=== PATIENT | male | born 1995 | race Two or more races ===

== ENCOUNTER 2019-04-20 21:53 | Inpatient (IN) | payer OTHER ==
[~2019-04-20] VITALS: Ht 175.3 cm; Wt 68.9 kg
[~2019-04-20 21:53] MED LIST: FERR325T23 PO; MESA0.37 PO; PRED20TA PO
[2019-04-20] MEDS ORDERED: MORPHINE SULFATE INJ 2 MG/ML DISP.SYRIN IV ONE (23:00)
[2019-04-20] MEDS ORDERED: IV NS 0.9% 1,000 ML BAG IV ONE ×2 (23:00→23:30)
[2019-04-20] MEDS ORDERED: ONDANSETRON HCL/PF 4 MG/2 ML VIAL IVP ONE (23:00)
[2019-04-20] MEDS ORDERED: MORPHINE SULFATE INJ 4 MG/ML DISP.SYRIN ONE (23:15)
[2019-04-20] MEDS ORDERED: ONDANSETRON HCL/PF 4 MG/2 ML VIAL ONE (23:15)
[2019-04-20] MEDS ORDERED: ACETAMINOPHEN 325 MG TABLET PO ONE (23:30)
[2019-04-20] MEDS ORDERED: ACETAMINOPHEN ES 500 MG TABLET ONE (23:37)
[2019-04-20 23:43] LABS: BASOPHILS # (AUTO) 0.1 /CMM (0.0-0.2); BASOPHILS % (AUTO) 0.7 % (0.0-2.0); EOSINOPHILS % (AUTO) 0.8 % (0.0-6.0); LYMPHOCYTES # (AUTO) 1.5 /CMM (0.8-4.8); LYMPHOCYTES % (AUTO) 20.6 % (20.0-44.0); MEAN CORPUSCULAR HGB CONC 33 g/dl (31.0-36.0); MEAN CORPUSCULAR VOLUME 93 fL (80-96); MONOCYTES # (AUTO) 1.6 /CMM (0.1-1.30); MONOCYTES % (AUTO) 22.1 % (2.0-12.0); NEUTROPHILS # (AUTO) 4.1 /CMM (1.8-8.9); NEUTROPHILS % (AUTO) 55.8 % (43.0-81.0); PLATELET COUNT (AUTO) 416 /CMM (150-450); RED BLOOD CELL COUNT(AUTO) 2.05 MIL/uL (4.5-6.0); WHITE BLOOD COUNT (AUTO) 7.3 K/uL (4.3-11.0)
[2019-04-20 23:45] LABS: HEMATOCRIT 19 % (39-51); HEMOGLOBIN 6.3 g/dL (13.5-17.5)
--- NOTE | 2019-04-20 23:45 | NUR ---
A/O X 4. C/O ABDOMINAL PAIN 02/21. SEEN BY MD. IV STARTED AND MEDS GIVEN.
[2019-04-20 23:54] LABS: CALCIUM, SERUM 7.8 mg/dL (8.5-10.1); CARBON DIOXIDE 29 mmol/L (21-32); CHLORIDE 94 mmol/L (98-107); CREATININE 1.3 mg/dL (0.6-1.3); GLUCOSE 118 mg/dL (74-106); POTASSIUM 3.7 mmol/L (3.5-5.1); SODIUM SERUM 131 mmol/L (136-145); UREA NITROGEN, BLOOD 9 mg/dL (7-18)
--- NOTE | 2019-04-20 23:56 | NUR ---
WENT FOR CT.
[2019-04-20 23:59] LABS: ALANINE AMINOTRANSFERASE 18 U/L (12-78); ALBUMIN 1.9 g/dL (3.4-5.0); ALKALINE PHOSPHATASE 32 U/L (46-116); ASPARTATE AMINOTRANSFERASE 18 U/L (15-37); BILIRUBIN,DIRECT 0.1 mg/dL (0.0-0.2); BILIRUBIN,TOTAL 0.2 mg/dL (0.2-1.0); LIPASE 51 U/L (73-393); TOTAL PROTEIN, SERUM 5.8 g/dL (6.4-8.2)
[2019-04-21] VITALS (11 sets, daily range): BP systolic 89–110; BP diastolic 40–61
[2019-04-21 00:30] LABS: BAND % (MANUAL) 5 % (0.0-5.0); LYMPHOCYTES % (MANUAL) 28 % (16-48); METAMYELOCYTES % 4 % (0-0); MONOCYTES % (MANUAL) 10 % (0-11.0); MYELOCYTES % 3 % (0-0); NEUTROPHILS % (MANUAL) 48 (42-76); REACTIVE LYMPHOCYTES 2 % (0-0)
[2019-04-21] MEDS ORDERED: ACETAMINOPHEN 160 MG/5 ML ONE (00:47)
[2019-04-21 02:27] LABS: APPEARANCE,URINE Clear (CLEAR); BILIRUBIN,URINE Negative (NEGATIVE); BLOOD, URINE Negative Ery/uL (NEGATIVE); COLOR,URINE Yellow (YELLOW); KETONES,URINE Negative (NEGATIVE); LEUKOCYTE ESTERASE ,URINE Negative (NEGATIVE); NITRITE, URINE Negative (NEGATIVE); PH,URINE 6.5 (5.0-8.0); PROTEIN,URINE Negative (NEGATIVE); UGLUCOSE Negative (NEGATIVE); UROBILINOGEN,URINE 0.2 EU/dL (0.2)
[2019-04-21 02:35] LABS: OCCULT BLOOD STOOL POSITIVE (NEGATIVE)
--- NOTE | 2019-04-21 02:59 | NUR ---
STARTED BLOOD TRANSFUSION. 1 UNIT PRBC. VITALS DOCUMENTED. NO C/O PAIN. NO S/SX OF REACTION NOTED.
[2019-04-21] MEDS ORDERED: FERR134T2 PO (03:12)
[2019-04-21] MEDS ORDERED: MESA0.37 PO (03:12)
[2019-04-21] MEDS ORDERED: POLY119P2 PO (03:12)
--- NOTE | 2019-04-21 03:34 | NUR ---
GAVE REPORT TO VESTA DAWSON.
--- NOTE | 2019-04-21 04:00 | NUR ---
ANAESTHETIC TECHNICIAN ADMITING NOTE RECEIVED PT FROM ER, REPORT GIVEN BY MALLORY, PT ADMITED FOR ULCERATIVE COLITIS, DR HAMM ADMITING, ORDERS GIVEN PER PROTOCOL, H&H 6.3, 2 UNITS ORDERED. PT AOX4 AMBULATORY, SKIN INTACT, PRBC 1 UNIT RUNNING, WELL TOLERATED @ 100 ML/HR, NO EARLY REACTION NOTE, IV SITE INTACT, WELL SECURED, ALL SAFETY MEASURES IN PLACE, FIRST 1 UNIT GIVEN BY ER, DOWNTIME, PAPER PROVIDED AND END TIME DONE, FILED IN PT CHART, WILL ENDORSE TO AM RN TO F/U WITH 2 ND UNIT.
[2019-04-21] MEDS ORDERED: HYDROMORPHONE INJ 0.5 MG/0.5 ML SYRINGE IV PRN (04:30)
[2019-04-21] MEDS ORDERED: ZOLPIDEM TARTRATE 5 MG TABLET PO PRN (04:30)
[2019-04-21] MEDS ORDERED: ACETAMINOPHEN 325 MG TABLET PO PRN (04:30)
[2019-04-21] MEDS ORDERED: PANTOPRAZOLE 40 MG TABLET.DR PO SCH (07:30)
[2019-04-21] MEDS: methylPREDNISolone SOD SUCC 40 MG/ML VIAL IV SCH ×3 (07:33→20:25)
[2019-04-21] MEDS ORDERED: HYDROMORPHONE 1 MG/1 ML DISP.SYRIN IV PRN (07:34)
--- NOTE | 2019-04-21 08:00 | NUR ---
RN DARRICK: pt. is getting second PRBC, A/Ox3, no c/o, no any pain, able to ambulate to bathroom, reported bloody diarrhea, Hb6.1 with adm, 7.3 before BT by report, getting clear liquid diet by report, recheck H/H after BT by report, is on case by report
[2019-04-21] MEDS ORDERED: MESALAMINE 400 MG CAP PO SCH ×2 (09:00→13:00)
--- NOTE | 2019-04-21 09:15 | NUR ---
RN DARRICK: pt.reported: had 2 black bloody stools since 0600
--- NOTE | 2019-04-21 09:22 | NUR ---
RN DARRICK: second PRBC given, tolerated well
--- NOTE | 2019-04-21 10:00 | NUR ---
RN DARRICK: is in room, notified re pt.current status, still black bloody stools, 2xPRBC given, ?clear liquid diet, meds, labs, history, VS, ordered: GI MD consult, recheck H/H in 1 hr and report, NPO except meds, see new orders
[2019-04-21 11:11] LABS: BASOPHILS % (AUTO) 0.4 % (0.0-2.0); HEMATOCRIT 25 % (39-51); HEMOGLOBIN 8.4 g/dL (13.5-17.5); LYMPHOCYTES # (AUTO) 0.4 /CMM (0.8-4.8); LYMPHOCYTES % (AUTO) 6.7 % (20.0-44.0); MEAN CORPUSCULAR HGB CONC 33 g/dl (31.0-36.0); MEAN CORPUSCULAR VOLUME 91 fL (80-96); MONOCYTES # (AUTO) 0.6 /CMM (0.1-1.30); MONOCYTES % (AUTO) 10.1 % (2.0-12.0); NEUTROPHILS # (AUTO) 5.1 /CMM (1.8-8.9); NEUTROPHILS % (AUTO) 82.8 % (43.0-81.0); PLATELET COUNT (AUTO) 334 /CMM (150-450); RED BLOOD CELL COUNT(AUTO) 2.77 MIL/uL (4.5-6.0); WHITE BLOOD COUNT (AUTO) 6.2 K/uL (4.3-11.0)
[2019-04-21 11:21] LABS: CALCIUM, SERUM 7.5 mg/dL (8.5-10.1); CREATININE 0.9 mg/dL (0.6-1.3); POTASSIUM 3.9 mmol/L (3.5-5.1)
[2019-04-21] MEDS: APRISO 0.375 GM PO SCH (13:00)
--- NOTE | 2019-04-21 13:15 | NUR ---
FIELD CHECKER: unable to finish with myself charting, VS, I/O, notes, taxi driver supervisor sent me back to ICU rapidly, full report was given for SAMIR Patton included next? H/H, GI consult, new note, pt.home meds
--- NOTE | 2019-04-21 13:15 | NUR ---
RN OPENING NOTES RECEIVED PT MIDSHIFT FROM SAMIR BURROWS. PATIENT IS RESTING IN BED COMFORTABLY, NO S/SX OF PAIN DISTRESS. HE IS NPO EXCEPT MEDS. SAFETY MEASURES HAVE BEEN IMPLEMENTED. CALL LIGHT IS WITHIN REACH, BED IS IN LOWEST AND LOCKED POSITION, SIDE RAILS UP X2, WILL CONTINUE TO MONITOR FOR ANY CHANGES
--- NOTE | 2019-04-21 13:41 | NUR ---
1300 DOSE OF APRISO (HOME MED) HELD BECAUSE PATIENT TOOK DAILY DOSE ALREADY. HE DID NOT NOTIFY PREVIOUS NURSE.
--- NOTE | 2019-04-21 18:56 | NUR ---
RN CLOSING NOTES PATIENT IS RESTING IN BED COMFORTABLY, DENIES ANY PAIN OR DISCOMFORT AT THIS TIME. HE IS AOX4, VERBAL, AND AMBULATORY. PATIENT NEEDS HAVE BEEN MET. DIET CHANGED FROM NPO EXCEPT MEDS TO CLEAR LIQUIDS. TOLERATING WELL. HE HAD NO BLOODY DIARRHEA. SAFETY MEASURES HAVE BEEN IMPLEMENTED, CALL LIGHT IS WITHIN REACH, BED IN LOWEST AND LOCKED POSITION, SIDE RAILS UP X2, WILL ENDORSE TO NIGHTSHIFT RN FOR CONTINUAL CARE.
--- NOTE | 2019-04-21 19:10 | NUR ---
MS RN OPENING NOTES Received patient A/O X4, awake, on semi-Alarcon's position on bed. On RA, no SOB/respiratory distress noted. Patient denies any discomfort at this time. With concern of his car parked at the second floor. Called up lobby security, car information provided plate # [id number] [facility] [place] [employer], per security the car should be fine. Informed patient of the security's response. Patient is appreciative of the information. Kept on bed clean, dry and comfortable. Call light within easy reach. Will continue to monitor accordingly.
[2019-04-21] MEDS: PANTOPRAZOLE 40 MG VIAL IV SCH (20:25)
[2019-04-22] VITALS (7 sets, daily range): BP systolic 104–114; BP diastolic 52–82
[2019-04-22] MEDS: methylPREDNISolone SOD SUCC 40 MG/ML VIAL IV SCH ×2 (04:12→16:16)
--- NOTE | 2019-04-22 06:21 | NUR ---
MS RN CLOSING NOTES Patient on bed asleep, easily awaken. On RA, no SOB/respiratory distress noted. No complaints of pain made within the shift. All due meds given as ordered, no ASE noted. Patient claimed his BM x1 is soft and formed, no blood noted. Kept on bed clean, dry and comfortable. All nursing needs attended. Call light within easy reach. Endorsed to the next shift.
[2019-04-22 06:56] LABS: HEMATOCRIT 25 % (39-51); HEMOGLOBIN 8.3 g/dL (13.5-17.5); LYMPHOCYTES # (AUTO) 0.6 /CMM (0.8-4.8); LYMPHOCYTES % (AUTO) 8.2 % (20.0-44.0); MEAN CORPUSCULAR HGB CONC 34 g/dl (31.0-36.0); MEAN CORPUSCULAR VOLUME 91 fL (80-96); MONOCYTES # (AUTO) 1.1 /CMM (0.1-1.30); MONOCYTES % (AUTO) 14.9 % (2.0-12.0); NEUTROPHILS # (AUTO) 5.8 /CMM (1.8-8.9); NEUTROPHILS % (AUTO) 76.9 % (43.0-81.0); PLATELET COUNT (AUTO) 419 /CMM (150-450); RED BLOOD CELL COUNT(AUTO) 2.72 MIL/uL (4.5-6.0); WHITE BLOOD COUNT (AUTO) 7.5 K/uL (4.3-11.0)
--- NOTE | 2019-04-22 07:00 | NUR ---
MS RN OPENING NOTES Received patient A/O X4, awake, on semi-Alarcon's position on bed. On RA, no SOB/respiratory distress noted. Patient denies any discomfort at this time. PT said he wants to be discharged today; otherwise he will leave without any doctor order. Assured pt that MD will be contacted and made aware . Safety precaution in place. Bed locked and at the lowest position, side rails up x2. Call light within easy reach. Will continue to monitor accordingly.
[2019-04-22 07:23] LABS: POTASSIUM 4.2 mmol/L (3.5-5.1)
[2019-04-22 07:41] LABS: CALCIUM, SERUM 7.9 mg/dL (8.5-10.1); PHOSPHORUS 3.9 mg/dL (2.5-4.9)
--- NOTE | 2019-04-22 08:30 | NUR ---
MS RN NOTE SENT TEXT TO THE GI DOCTOR AND ASKED IF PT CAN BE DISCHARGED TODAY. PT KEPT UPDATED. WILL FOLLOW UP.
[2019-04-22] MEDS: APRISO 0.375 GM PO SCH (09:25)
--- NOTE | 2019-04-22 10:15 | NUR ---
RN MS NOTE CATHY BOB ORDERED 1 UNIT RBC TRANSFUSION. ORDER PLACED. DR. HAMM PLACED D/C ORDER FOR TODAY. PT WILL BE D/C AFTER GETTIG THE TRANSFUSION.
[2019-04-22] MEDS ORDERED: PRED20TA PO (10:27)
[2019-04-22] MEDS: PANTOPRAZOLE 40 MG VIAL IV SCH (10:37)
[2019-04-22] MEDS ORDERED: SOD FERRIC GLUC 125 MG in IV NS 0.9% 100 ML IV SCH (14:00)
--- NOTE | 2019-04-22 14:30 | NUR ---
MS RN NOTE PT IS RECEIVING 1 UNIT RBC TRANSFUSION. FAMILY MEMBER AT BEDSIDE. PT STABLE.
--- NOTE | 2019-04-22 15:00 | NUR ---
RN MS NOTE CATHY BOB N.P. AT BEDSIDE. ACCORDING TO HER THERE IS NO NEED TO GIVE FERRLECIT TO THE PT ANYMORE SINCE PT IS GETTING BLOOD TRANSFUSION. SHE IS GOING TO D/C FERRLECIT.
--- NOTE | 2019-04-22 16:40 | NUR ---
RN MS NOTE PT STABLE AFTER BLOOD TRANSFUSION. NO REACTION NOTED. PT GOT DISCHARGED. I WALKED OUT PT TO THE [facility] . WILL DRIVE HOME BY HIS OWN CAR.
== END 2019-04-22 16:45 | disposition home or self-care (01) | DRG 245 ==
LOC: ER 21:57 → TELE 04-21 03:26 → TELE1 04-21 04:06 → MEDSG1 04-21 09:47
PROVIDERS: ADMIT Internal Medicine; ATTEND Internal Medicine
PROC: 30233N1 Transfusion of Nonautologous Red Blood Cells into Peripheral Vein, Percutaneous Approach (ICD-10-PCS; principal; 2019-04-21)
DX: K51.911 Ulcerative colitis, unspecified with rectal bleeding (principal); E43 Unspecified severe protein-calorie malnutrition; D62 Acute posthemorrhagic anemia; E87.1 Hypo-osmolality and hyponatremia; E88.09 Other disorders of plasma-protein metabolism, not elsewhere classified; D63.8 Anemia in other chronic diseases classified elsewhere; Z68.22 Body mass index [BMI] 22.0-22.9, adult
CPT/HCPCS: 36415; 71045-TC; 80048-TC; 80076-TC; 81000-TC; 82272-TC; 83605-TC; 83690-TC; 83735-TC; 84100-TC; 85025-TC; 85730-TC; 86850-TC; 86921-TC; 87040-TC; 87081-TC; A4216; A4349; C1751; C9113; G0378; J2270; J2405; J2916; J2920; J7030; J7040; J7050; P9016-BL

== ENCOUNTER 2025-08-14 12:06 | Emergency (ER) | payer OTHER ==
[~2025-08-14] VITALS: Ht 175.3 cm; Wt 74.4 kg
[2025-08-14] MEDS ORDERED: MESA800T9 PO (13:03)
[2025-08-14] MEDS ORDERED: PRED20TA PO (13:03)
[2025-08-14 13:10] VITALS: BP 116/64; TEMP 98.7; O2SAT 98
== END 2025-08-14 13:10 | disposition home or self-care (01) ==
LOC: ER 12:07
DX: K51.90 Ulcerative colitis, unspecified, without complications (principal); K65.1 Peritoneal abscess; Z76.0 Encounter for issue of repeat prescription; Z79.52 Long term (current) use of systemic steroids